=== PATIENT | female | born 1980 | race Caucasian/White ===

== ENCOUNTER → 2018-07-05 | Outpatient (CLI) | payer SELFPAY ==
[2018-07-06 08:43] LABS: ASO Titer 65.4 IU/mL (0.0-200.0)
== END | disposition home or self-care (01) ==
PROVIDERS: Referring Provider Otolaryngology Otolaryngology/Facial Plastic Surgery; Visit Provider Otolaryngology Otolaryngology/Facial Plastic Surgery
DX: J03.90 Acute tonsillitis, unspecified (principal); Z86.19 Personal history of other infectious and parasitic diseases
CPT/HCPCS: 36415; 86060

== ENCOUNTER → 2018-07-05 | Outpatient (CLI) | payer SELFPAY | END | disposition home or self-care (01) | LOC: LABSPEC 16:10 | PROVIDERS: Referring Provider Otolaryngology Otolaryngology/Facial Plastic Surgery; Visit Provider Otolaryngology Otolaryngology/Facial Plastic Surgery | DX: J02.9 Acute pharyngitis, unspecified (principal) | CPT/HCPCS: 87070 ==

== ENCOUNTER → 2023-05-11 | Outpatient (CLI) | payer MEDICAID, SELFPAY ==
[2023-05-11 09:35] LABS: Absolute Lymphocyte Count 2.55 X10^3/uL (0.83-4.51); Absolute Neutrophil Count 4.9 X10^3/uL (2.0-7.7); Basophil# 0.06 X10^3/uL; Basophil% 0.7 % (0-1); Eosinophil# 0.09 X10^3/uL; Eosinophils% 1.1 % (0-5); Hematocrit 44.1 % (37-47); Hemoglobin 14.8 g/dL (12.0-15.0); Lymphocyte # 2.55 X10^3/ul (0.83-4.51); Lymphocyte % 31.5 % (19-41); Mean Corp Hgb Conc 33.6 g/dL (32-36); Mean Corpuscular Hgb 29.7 pg (27.0-32.0); Mean Corpuscular Volume 88.4 fL (81-99); Mean Platelet Vol. 9.6 fl (6.2-12.0); Monocyte# 0.43 X10^3/uL; Monocyte% 5.3 % (0-10); NRBC Flagged by Analyzer 0 % (0-5); Neutrophil # 4.93 X10^3/uL (2.7-7.7); Platelet Count 224 K/mm3 (150-450); RBC Distribution Width CV 11.9 % (11.6-14.6); RBC Distribution Width SD 38.4 fl (35.1-43.9); Red Blood Count 4.99 M/mm3 (4.2-5.4); White Blood Count 8.1 K/mm3 (4.4-11.0)
[2023-05-11 10:05] LABS: ALB/GLOB Ratio 1.1 RATIO (0.9-2.4); AST(SGOT) 20 U/L (15-37); Alanine Aminotransfer ALT/SGPT 49 U/L (13-56); Albumin, Serum 3.7 g/dL (3.2-5.0); Alkaline Phosphatase 52 U/L (45-117); Anion Gap 5 (5-15); BUN 12 mg/dL (7-18); BUN/Creat Ratio 22.2 RATIO (10-20); Calcium,Total 8.8 mg/dL (8.5-10.1); Chloride 110 mmol/L (98-107); Creatinine, Serum 0.54 mg/dL (0.55-1.02); EST Glomerular Filtration Rate 132 mL/min (>60); Est Glom Filt Rate - Afr Amer 160 mL/min (>60); Globulin 3.3 g/dL (2.2-4.2); Glucose 84 mg/dL (74-106); Magnesium 2.1 mg/dL (1.6-2.6); Potassium 3.7 mmol/L (3.5-5.1); Prolactin 13.2 ng/mL; Sodium Level 143 mmol/L (136-145); Thyroid Stim Hormone (TSH) 0.62 uIU/mL (0.358-3.74)
[2023-05-11 10:17] LABS: Hemoglobin A1c 4.9 % (3.8-5.6)
[2023-05-11 10:38] LABS: HIV - WCH Non-Reactive (Nonreactive); Hepatitis B Surface Antibody Reactive; Hepatitis B Surface Antigen Non-Reactive (Nonreactive); Hepatitis C Antibody Non-Reactive (Nonreactive); Syphilis Antibodies Non-reactive
== END | disposition home or self-care (01) ==
LOC: LAB 09:12
PROVIDERS: Referring Provider Nurse Practitioner Family; Visit Provider Nurse Practitioner Family
DX: Z11.3 Encounter for screening for infections with a predominantly sexual mode of transmission (principal); G43.909 Migraine, unspecified, not intractable, without status migrainosus; R10.9 Unspecified abdominal pain; N94.6 Dysmenorrhea, unspecified
CPT/HCPCS: 36415; 80053; 83036; 83735; 84146; 84443; 85025; 86703; 86706; 86780; 86803; 87340

== ENCOUNTER → 2023-05-18 | Outpatient (CLI) | payer MEDICAID, SELFPAY ==
--- NOTE | 2023-05-18 14:02 | US_ITS ---
STUDY: RENAL ULTRASOUND - COMPLETE REASON FOR EXAM: Female, 42 years old. UNSPECIFIED ABDOMINAL PAIN TECHNIQUE: Ultrasound evaluation of the kidneys was performed with real-time and static fernández-scale imaging. COMPARISON: None. FINDINGS: RIGHT KIDNEY: Normal location of the right kidney, which is normal in size. The right kidney measures 13.2 x 5.5 x 4 cm. There is a normal cortex of the right kidney. The renal cortex measures 1.1 cm. There is no right renal mass or cyst. There are no right renal calculi. There is no right hydronephrosis. DISTAL RIGHT URETER: There is non-visualization of the distal right ureter. There is no demonstrated right ureterovesical junction calculus. There is a visualized right ureteral jet. LEFT KIDNEY: Normal location of the left kidney, which is normal in size. The left kidney measures 13.1 x 5.6 x 5.6 cm. There is a normal cortex of the left kidney. The renal cortex measures 1.3 cm. There is a small complex cyst with calcified wall measuring 1.5 x 1.6 x 1.5 cm There are no left renal calculi. There is no left hydronephrosis. DISTAL LEFT URETER: There is non-visualization of the distal left ureter. There is no demonstrated left ureterovesical junction calculus. There is a visualized left ureteral jet. BLADDER: The distended urinary bladder has a volume of 845.16 ml. The empty urinary bladder has a volume of 36.18 ml. There is a normal wall thickness of the distended urinary bladder. There is no demonstrated mass within the urinary bladder. There are no demonstrated bladder calculi. US/Kidney and Bladder IMPRESSION: Small complex cyst with apparent calcified wall left kidney measuring approximately 1.5 x 1.[address] would be helpful for further dilation indicated. No evidence for renal obstruction Electronically Signed: Chon Raymond MD at 23:02 EDT ,
--- OUTSIDE RECORDS SUMMARY | 2023-05-18 18:50 | XMS RPT_ITS | CCD ---
Author Name Unknown Address [address] [place] [address] Organization [facility] Care Team Providers Care Hoist Cylinder Loader Name Role Phone None, No PCP Unavailable Unavailable Unavailable Unavailable Chidi Spears Referring Unavailabl e Chidi Spears Attending Unavailabl e Chidi Spears Attending Unavailabl e Unavailable Unavailable No, Physician Primary Care Provider Unavailabl e NO, PHYSICIAN Primary Care Unavailable FINA SCHWARTZ Attending Unavailable NO, PHYSICIAN Primary Care Unavailable KAMILA FERNANDEZ Attending Unavail able Allergies Allergy Classification Reported Allergen(s) Allergy Type Date of Onset Reaction(s) Facility (7 sources) Penicillins; Translations: [Penicillins] Allergy to drug (finding) 1 [facility] (6 sources) Sulfonamides (Antibiotic); Translations: [Sulfa Drugs] Allergy to drug (finding) [facility] Work Phone: (4 sources) Penicillins Propensity to adverse reactions to drug 1 [facility] (5 sources) Sulfonamides (Antibiotic); Translations: [SULFA (SULFONAMIDE ANTIBIOTICS)] Propensity to adverse reactions to drug 1 [facility] Medications Current Medications Medication Drug Class(es) Dates Sig (Normalized) Sig (Original) azithromycin 250 mg oral tablet (4 sources) Macrolide Antimicrobial Start: 01-07-2023 azithromycin (Zithromax Z-Kade) 250 MG tablet Indications: Right otitis media, unspecified otitis media type Take 2 tablets on day one and 1 tablet on days 2 through 5. . 6 tablet 0 01/07/2023 Active Completed/Discontinued Medications Medication Drug Class(es) Dates Sig (Normalized) Sig (Original) ascorbic acid 500 mg chewable tablet (6 sources) Vitamin C Vitamin C Oral T ablet Chewable Quantity: 0 Refills: 0 Ordered: 26-Oct-2020 DO Active Womens Multivitamin Plus TABS (6 sources) Womens Multivita min Plus TABS Quantity: 0 Refills: 0 Ordered: 26-Oct-2020 DO Active Problems Active Problems Problem Classification Problem Date Documented Da te Episodic/Chronic Immunizations and screening for infectious disease (1 source) Suspected disease caused by 2019-nCoV; Translations: [Suspected COVID-19 virus infection] 04-08-2023 Episodic Nonmalignant breast conditions (6 sources) Discharge from the breast; Translations: [Other signs and symptoms in breast] Episodic Other ear and sense organ disorders (3 sources) Acute otitis externa of right ear; Translations: [Unspecified acute noninfective otitis externa, right ear] 01-07-2023 Episodic Other ear and sense organ disorders (3 sources) Impacted cerumen in right ear; Translations: [Impacted cerumen, right ear] 01-07-2023 Episodic Other nervous system disorders (2 sources) Loss of sense of smell; Translations: [Anosmia] Onset: 04-08-2023 04-08-2023 Episodic Other nervous system disorders (1 source) Loss of taste; Translations: [Parageusia] 04-08-2023 Episodic Other nervous system disorders (1 source) Anosmia; Translations: [Anosmia] Onset: 04-08-2023 Episodic Other nervous system disorders (2 sources) Parageusia; Translations: [Parageusia] Onset: 04-08-2023 Episodic Other screening for suspected conditions (not mental disorders or infectious disease) (8 sources) Abnormal findings on diagnostic imaging of breast; Translations: [Other (abnormal) findings on radiological examination of breast] Onset: 11-04-2021 Episodic Residual codes; unclassified (6 sources) Infertile; Translations: [Infertility] Episodic Unclassified (1 source) Contact with and (suspected) exposure to covid-19; Translations: [Contact with and (suspected) exposure to covid-19] Onset: 04-08-2023 Past or Other Problems Problem Classification Problem Date Documented Da te Episodic/Chronic Other ear and sense organ disorders (2 sources) Unspecified acute noninfective otitis externa, right ear; Translations: [Unspecified acute noninfective otitis externa, right ear] Onset: 01-07-2023 Episodic Other ear and sense organ disorders (2 sources) Impacted cerumen, right ear; Translations: [Impacted cerumen, right ear] Onset: 01-07-2023 Episodic Otitis media and related conditions (5 sources) Otitis media of right ear; Translations: [Otitis media, unspecified, right ear] Onset: 01-07-2023 01-07-2023 Episodic Unclassified (6 sources) Finding of menstrual bleeding; Translations: [Menstruation] Results Test Name Value Interpretation Reference Range Facil ity Vital Signs Date Time Vital Sign Value Performing Clinician Facility 04-08-2023 09:21-0500 Body height 172.7 cm Fina Schwartz DO Work Phone: [facility] 04-08-2023 09:21-0500 Body mass index (BMI) [Ratio] 25.85 kg/m2 Fina Schwartz DO Work Phone: [facility] 04-08-2023 09:21-0500 Body temperature 98.2 [degF] Fina Schwartz DO Work Phone: [facility] 04-08-2023 09:21-0500 Body weight 77.11 kg Fina Schwartz DO Work Phone: [facility] 04-08-2023 09:21-0500 Diastolic blood pressure 85 mm[Hg] Fina Schwartz DO Work Phone: [facility] 04-08-2023 09:21-0500 Heart rate 63 /min Fina Schwartz DO Work Phone: [facility] 04-08-2023 09:21-0500 Respiratory rate 16 /min Fina Schwartz DO Work Phone: [facility] 04-08-2023 09:21-0500 SaO2% (BldA) [Mass fraction] 95 % Fina Schwartz DO Work Phone: [facility] 04-08-2023 09:21-0500 Systolic blood pressure 122 mm[Hg] Fina Schwartz DO Work Phone: [facility] 01-07-2023 09:22-0500 Body height 172.7 cm Kamila Fernandez CNP Work Phone: [facility] 01-07-2023 09:22-0500 Body mass index (BMI) [Ratio] 25.09 kg/m2 Kamila Fernandez CNP Work Phone: [facility] 01-07-2023 09:22-0500 Body temperature 98.2 [degF] Kamila Fernandez CORE DROPPER Work Phone: [facility] 01-07-2023 09:22-0500 Body weight 74.84 kg Kamila Fernandez CNP Work Phone: [facility] 01-07-2023 09:22-0500 Diastolic blood pressure 85 mm[Hg] Kamila Fernandez CNP Work Phone: [facility] 01-07-2023 09:22-0500 Heart rate 72 /min Kamila Fernandez CORE DROPPER Work Phone: [facility] 01-07-2023 09:22-0500 Respiratory rate 16 /min Kamila Fernandez CNP Work Phone: [facility] 01-07-2023 09:22-0500 SaO2% (BldA) [Mass fraction] 97 % Kamila Fernandez CNP Work Phone: [facility] 01-07-2023 09:22-0500 Systolic blood pressure 117 mm[Hg] Kamila Fernandez CNP Work Phone: [facility] 11-04-2021 08:53-0400 Body height 172.72 cm No PCP None [facility] [address] Work Phone: 11-04-2021 08:53-0400 Body mass index (BMI) [Ratio] 24.74 kg/m2 No PCP None [facility] [address] Work Phone: 11-04-2021 08:53-0400 Body surface area Derived from formula 1.87 m2 No PCP None [facility] [address] Work Phone: 11-04-2021 08:53-0400 Body weight 73.8 kg No PCP None [facility] [address] Work Phone: 11-04-2021 08:53-0400 Diastolic blood pressure 60 mm[Hg] No PCP [facility] [address] Work Phone: 11-04-2021 08:53-0400 Systolic blood pressure 108 mm[Hg] No PCP None [facility] [address] Work Phone: 10-26-2020 09:25-0400 Body height 172.72 cm No PCP None [facility] Work Phone: 10-26-2020 09:25-0400 Body mass index (BMI) [Ratio] 27.76 kg/m2 No PCP None [facility] Work Phone: 10-26-2020 09:25-0400 Body surface area Derived from formula 1.97 m2 No PCP None [facility] Work Phone: 10-26-2020 09:25-0400 Body temperature 98.7 [degF] No PCP None [facility] Work Phone: 10-26-2020 09:25-0400 Body weight 82.8 kg No PCP None [facility] Work Phone: 10-26-2020 09:25-0400 Diastolic blood pressure 66 mm[Hg] No PCP None [facility] Work Phone: 10-26-2020 09:25-0400 Systolic blood pressure 108 mm[Hg] No PCP None [facility] Work Phone: Encounters Encounter Date Encounter Type Care Provider Facility Start: 04-08-2023 End: 04-08-[address] [facility] Start: 04-08-2023 End: 04-08-2023 Office outpatient visit 15 minutes Fina Schwartz DO Work Phone: [facility] [place] Procedures Date Procedure Procedure Detail Performing Clinician Start: 04-08-2023 Sars-cov-2 detection by dna/rna Fina Schwartz DO Work Phone: Start: 01-07-2023 EAR WAX REMOVAL Hernán Fernandez CORE DROPPER Work Phone: Appendectomy No PCP None Colposcopy No PCP None Plan of Treatment Date Care Activity Detail Author Start: 05-31-2025 Tetanus vaccination Tetanus: Every 1 0yrs [facility] Start: 09-02-2023 Influenza vaccination Sequential Inf luenza Vaccine (#1) [facility] Immunizations Immunization Date Immunization Notes Care Provider Fa cility 12-07-2017 Influenza, injectabl e, Madin Luciana Canine Kidney, preservative free, quadrivalent Kamila Rebecca CORE DROPPER Work Phone: [facility] 06-01-2015 tetanus toxoid, redu chaya diphtheria toxoid, and acellular pertussis vaccine, adsorbed Kamila Rebecca CORE DROPPER Work Phone: [facility] Payers Date Payer Category Payer Unknown 2022 Unknown [id number] 1980 Unknown [id number] 1980 Unknown [id number] [id number] 1980 Unknown [id number] [id number]. [id number] 1980 Unknown [id number] [id number]. [id number] Unknown [id number] Social History Date Type Detail Facility Start: 01-07-2023 End: 04-08-2023 Non-smoker Non-smoker [facility] Work Phone: Start: 01-07-2023 Tobacco smoking status NHIS Never smoked tobacco [facility] Start: 01-07-2023 Tobacco use and exposure Smokeless tobacco non-user [facility] Start: 01-07-2023 End: 04-08-2023 Alcohol intake Current drinker of alcohol (finding) [facility] Start: 01-07-2023 Alcohol Comment rarely [facility] Start: 1980 Sex Assigned At Not on file [facility] Start: 01-07-2023 End: 04-08-2023 Gender identity Not on file [facility] NEGATED: Highlighted rowStart: NINF History of tobacco use Passive smoker [facility] Clinical Notes 12-07-2013 to 04-08-2023 Patient InstructionsAttachmentsFina Schwartz DO - 04/08/2023 9:29 AM ESTAddendum Note - Kamila Fernandez, CORE DROPPER - 01/07/2023 10:01 AM ESTPatient InstructionsAttachments Note Date & Type Note Facility 04-08-2023 Instructions Fina Schwartz DO - 04/08/2023 9:59 AM EST As we discussed in detail, your presentation is strongly suspicious for COVID-19 infection and you may have had a false negative test. No test in medical care is perfect. I recommend isolation for the next 2 days followed by returning to work with a mask which is your usual practice. The following attachments cannot be sent through Care Everywhere.Coronavirus Disease (COVID-19): General Info (Norwegian)documented in this encounter [facility] 04-08-2023 History of Presen t illness Narrative PATIENT NAME: Brandee Caceres [facility]: [address] [facility] [id number] DATE OF VISIT: 04/08/2023 DATE OF : 1980 SS: [id number] PROVIDER: Fina Schwartz DO SUBJECTIVE 42 y.o. female to the clinic for complaint of Chief Complaint Patient presents with Covid-19 Screening C/O nausea x . Headache, body aches, nausea, loss of taste and smell and SOB x Sunday HPI: Symptoms of nausea, headache and myalgias started 3 days ago. Symptoms of loss of taste and smell, minor cough, nasal congestion, rhinorrhea and mild dyspnea started 2 days ago. Concern for COVID. ROS: Constitutional: Denies measured fever or febrile symptoms (shivering, chills, sweats). Head/Ear/Nose/Throat: Denies ear pain or sore throat. Respiratory: See HPI above. Cardiovascular: Denies chest pain. Gastrointestinal: Denies diarrhea, abdominal pain, nausea, vomiting. Musculoskeletal: Admits to intermittent generalized myalgia. Skin: Denies rash Neurological: Admits to headache not of sudden onset or high severity. Social History Socioeconomic History Marital status: Tobacco Use Smoking status: Never Passive exposure: Never Smokeless tobacco: Never Vaping Use Vaping Use: Never used Substance and Sexual Activity Alcohol use: Yes Comment: rarely Drug use: Never History reviewed. No pertinent past medical history. History reviewed. No pertinent family history. Current Outpatient Medications on File Prior to Visit Medication Sig Dispense Refill multivitamin (THERAGRAN) per tablet Take 1 (one) tablet by mouth daily . omega-3 fatty acids/fish oil (fish oil-omega-3 fatty acids) 300-1,000 mg capsule Take 2 (two) capsules by mouth daily . azithromycin (Zithromax Z-Kade) 250 MG tablet Take 2 tablets on day one and 1 tablet on days 2 through 5. . (Patient not taking: Reported on 04/08/2023 .) 6 tablet 0 No current facility-administered medications on file prior to visit. Allergies Allergen Reactions Penicillins Rash Sulfa (Sulfonamide Antibiotics) Rash EXAM: BP 122/85 (BP Location: Right arm, Patient Position: Sitting, BP Cuff Size: Adult) Pulse 63 Temp 98.2 F (36.8 C) Resp 16 Ht 5' 8 Wt 77.1 kg (170 lb) LMP 04/02/2023 (Exact Date) SpO2 95% BMI 25.85 kg/m Constitutional: Vital signs reviewed. Well-appearing. No distress. Psychiatric: Mental status is appropriate. Normal affect. Skin: Warm and dry. No rash noted. Eyes: Conjunctiva clear. No photophobia. HENT: No hoarseness, drooling, trismus or stridor. No tonsil enlargement or exudate. No abscess. Tympanic membranes are normal. Sniffles and postnasal drainage noted. Thorax/ Respiratory: Respiratory effort non-labored. Speaks in full sentences without dyspnea. Lungs are clear to auscultation. Cardiovascular: Good peripheral circulation. H RRR with no murmurs or ectopy. Musculoskeletal: No gross abnormalities. Neck has normal ROM without hesitation or pain response. Neurologic: Alert and appropriately conversant. No ataxia. No dysarthria. No gross facial motor asymmetry. PROCEDURE Procedures RESULTS Recent Results (from the past 168 hour(s)) COVID-19, Molecular Collection Time: 04/08/23 9:35 AM Specimen: Nasopharyngeal; Swab Result Value Ref Range SARS-CoV-2 Not Detected Not Detected Diagnosis: The primary encounter diagnosis was Suspected COVID-19 virus infection. Diagnoses of Anosmia and Ageusia were also pertinent to this visit. Plan: 1. Suspected COVID-19 virus infection COVID-19, Molecular 2. Anosmia 3. Ageusia No follow-ups on file. ADDITIONAL CLINICAL COMMENTS / MEDICAL DECISION MAKING / PLAN: Test for COVID-19 was negative. Discussed probability of false negative test. Discussed that it is true that nasal congestion can sometimes diminish acuity of taste and smell. However, she is very emphatic of the complete sudden shot off of taste and smell that is beyond congestion and is very similar to her previous bout of COVID. I advised her to remain in isolation for 2 more days followed by return to work while wearing a mask. 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 Prior to finding the negative test result in the clinic today, we discussed possibility of optional Paxlovid. She had declined the offer. ORDERS PLACED THIS VISIT Orders Placed This Encounter Procedures COVID-19, Molecular MEDICATION LIST AT END OF VISIT Current Outpatient Medications Medication Sig Dispense Refill multivitamin (THERAGRAN) per tablet Take 1 (one) tablet by mouth daily . omega-3 fatty acids/fish oil (fish oil-omega-3 fatty acids) 300-1,000 mg capsule Take 2 (two) capsules by mouth daily . azithromycin (Zithromax Z-Kade) 250 MG tablet Take 2 tablets on day one and 1 tablet on days 2 through 5. . (Patient not taking: Reported on 04/08/2023 .) 6 tablet 0 No current facility-administered medications for this visit. Fina Schwartz DO documented in this encounter [facility] 01-07-2023 Note Right ear irrigation completed as ordered. Large amount of cerumen removed. Canal and TM red in color. P Conn CORE DROPPER returned to room for re-evaluation. Tolerated procedure well. [facility] 01-07-2023 Note Right ear irrigation completed as ordered. Large amount of cerumen removed. Canal and TM red in color. Carlito Fernandez CNP returned to room for re-evaluation. Tolerated procedure well. [facility] 01-07-2023 Note Addended by: Carlito FERNANDEZ on: 01/07/2023 10:01 AM Modules accepted: Level of Service [facility] 01-07-2023 Note Addended by: Carlito FERNANDEZ on: 01/07/2023 10:01 AM Modules accepted: Level of Service [facility] 01-07-2023 Note Addended by: Carlito FERNANDEZ on: 01/07/2023 10:01 AM Modules accepted: Level of Service [facility] 01-07-2023 Miscellaneous Notes Addended by: KAMILA FERNANDEZ on: 01/07/2023 10:01 AM Modules accepted: Level of Service documented in this encounter [facility] 01-07-2023 Instructions Kamila Fernandez CNP - 01/07/2023 10:00 AM EST Thank you for choosing [facility] for your healthcare needs today. Take the oral antibiotic as prescribed. Use the drops for a few days to prevent full blown canal infection (otitis externa). Follow up persistent/worsening of symptoms as needed. The following attachments cannot be sent through Care Everywhere.Otitis Externa (Norwegian)Otitis Media (Norwegian)documented in this encounter [facility] 01-07-2023 History of Presen t illness Narrative Images from the original note were not included. Patient Name: [facility] Location: Brandee Caceres [address] [place] [id number] Date Of : Date Of Visit: 1980 01/07/2023 MRN# Provider: [id number] Kamila Fernandez CNP Chief Complaint Patient presents with Otalgia Right ear pain after working in ear with camera to see ear wax. Canal red, cerumen seen, TM partially visible. Assessment & Plan 1. Acute otitis externa of right ear, unspecified type vrysltnb-qvxjzcxyl-eskecegzwfsh ne (CORTISPORIN) otic solution 2. Right otitis media, unspecified otitis media type azithromycin (Zithromax Z-Kade) 250 MG tablet 3. Impacted cerumen of right ear Ear wax removal No follow-ups on file. Medical Decision Making Client is pleasant, non-toxic in NAD with pain of the right ear after attempting ear lavage. No URI symptoms. Requesting ear lavage. Pain mild and intermittent. Reports pain with swallowing on occasion. No report of URI symptoms. Reviewed allergies. Non-smoker. See H&P Ear lavage right ear canal Client with OM right/Canal Irritation Right Zithromax/Cortisporin Otic No work note. Declines Flu Vac. Additional Clinical Comments See AVS Subjective 42 y.o. female presents with Otalgia (Right ear pain after working in ear with camera to see ear wax. Canal red, cerumen seen, TM partially visible.) Otalgia right ear after attempting to remove cerumen. Requests ear lavage to remove cerumen in the right ear. Otalgia There is pain in the right ear. This is a new problem. The current episode started in the past 7 days. Episode frequency: intermittent and with swallowing at times. The problem has been waxing and waning. The pain is mild. Pertinent negatives include no coughing, ear discharge, hearing loss, rhinorrhea or sore throat. Review Of Systems Review of Systems Constitutional: Negative for fever. HENT: Positive for ear pain. Negative for congestion, ear discharge, hearing loss, rhinorrhea and sore throat. Respiratory: Negative for cough. Medical History History reviewed. No pertinent past medical history. Past Surgical History: Procedure Laterality Date APPENDECTOMY right shoudler surgery There is no problem list on file for this patient. Social History Social History Tobacco Use Smoking status: Never Passive exposure: Never Smokeless tobacco: Never Vaping Use Vaping Use: Never used Substance Use Topics Alcohol use: Yes Comment: rarely Drug use: Never Family History No family history on file. Objective Physical Exam BP 117/85 (BP Location: Right arm, Patient Position: Sitting, BP Cuff Size: Adult) Pulse 72 Temp 98.2 F (36.8 C) (Oral) Resp 16 Ht 5' 8 Wt 74.8 kg (165 lb) LMP 12/12/2022 (Exact Date) Comment: LMP start date / kse SpO2 97% BMI 25.09 kg/m Vision/Hearing Exam:No results found. Physical Exam Vitals and nursing note reviewed. Constitutional: General: She is not in acute distress. Appearance: Normal appearance. She is not ill-appearing, toxic-appearing or diaphoretic. HENT: Head: Normocephalic and atraumatic. Right Ear: There is impacted cerumen. Left Ear: Tympanic membrane normal. Cardiovascular: Rate and Rhythm: Normal rate. Pulmonary: Effort: Pulmonary effort is normal. No respiratory distress. Skin: General: Skin is warm and dry. Neurological: Mental Status: She is alert. Psychiatric: Mood and Affect: Mood normal. Behavior: Behavior normal. Procedure Notes Procedures Results No results found for this or any previous visit (from the past 168 hour(s)). No orders to display Orders Placed This Visit Orders Placed This Encounter Procedures Ear wax removal Medication List At End Of Visit Current Outpatient Medications Medication Sig Dispense Refill multivitamin (THERAGRAN) per tablet Take 1 (one) tablet by mouth daily . omega-3 fatty acids/fish oil (fish oil-omega-3 fatty acids) 300-1,000 mg capsule Take 2 (two) capsules by mouth daily . azithromycin (Zithromax Z-Kade) 250 MG tablet Take 2 tablets on day one and 1 tablet on days 2 through 5. . 6 tablet 0 yvfuridp-bzbrthazj-pyrltfezzdaj ne (CORTISPORIN) otic solution Administer 4 (four) drops to the right ear 3 (three) times a day for 10 days . 10 mL 0 No current facility-administered medications for this visit. Patient Instructions Thank you for choosing [facility] for your healthcare needs today. Take the oral antibiotic as prescribed. Use the drops for a few days to prevent full blown canal infection (otitis externa). Follow up persistent/worsening of symptoms as needed. documented in this encounter [facility] 11-04-2021 Note 60 Date of Procedure: 11/04/2021 Pathologist: [facility], Cytology Date Reported: 11/14/2021 Date Received: 11/04/2021 Submitting Physician: CHIDI SPEARS MD FINAL CYTOLOGICAL INTERPRETATION A. THINPREP PAP CERVICAL: Specimen adequacy: SATISFACTORY FOR EVALUATION. Quality Indicator: Endocervical/transformation zone component is present. General Categorization: NEGATIVE FOR INTRAEPITHELIAL LESION OR MALIGNANCY. HIGH RISK HPV TEST RESULT: NEGATIVE Reference Range: Negative Slide(s) initially screened by a Auto Body Mechanic at [facility], [address] [place] [id number] Testing for high-risk (HR) type of human papilloma virus (HPV) is performed by the Vanda david HPV Test. The david HPV Test is a qualitative polymerase chain reaction that amplifies DNA of HPV16, HPV18 and 12 other high-risk HPV types (31, 33, 35, 39, 45, 51, 52, 56, 58, 59, 66, and 68) associated with cervical cancer and its precursor lesions. A positive result indicates the presence of HPV DNA due to one or more of the 14 genotypes: 16, 18, 31, 33, 35, 39, 45, 51, 52, 56, 58, 59, 66, and 68. Negative results indicate HPV DNA concentrations are undetectable or below the pre-set threshold for detection. False negative results may be associated with unoptimized sampling. A negative HR HPV result does not exclude the possibility of future cytologic HSIL or underlying CIN2-3 or cancer. This test is approved for cervical specimens by the US Food and Drug Administration. Results of this test should be interpreted in conjunction with the patient?s Pap test results. Please refer to ASCCP current guidelines for the use of HPV DNA testing, result interpretation, and patient management. The performance of this test was verified by the Molecular Diagnostic Laboratory at [facility] [place]. The lab is certified under the Clinical Laboratory Amendments of 1988 (CLIA 88) as qualified to perform high complexity clinical laboratory testing. This specimen has been analyzed by the [employer] Imaging System ([employer] an automated imaging and review system, which assists the laboratory in evaluating cells on ThinPrep Pap tests. Following automated imaging, selected holman from every slide were reviewed by a manufacturers agent and/or pathologist. Electronically Signed Out By [facility], Cytology//KMW By the signature on this report, the individual or group listed as making the Final Interpretation/Diagnosis certifies that they have reviewed this case. Diagnostic interpretation performed at [facility] [address] [place] [address] Educational Note: Cervical cytology is a screening procedure primarily for squamous cancers and precursors and has associated false-negative and false-positive results as evidenced by published data. Your patient?s test should be interpreted in this context, together with patient?s history and clinical findings. Regular sampling and follow-up of unexplained clinical signs and symptoms are recommended to minimize false negative results. Clinical History Date of Last Menstrual Period: 10/26/21 Other Clinical Conditions: COTEST HPV except for ASC-H, HSIL, Carcinoma - Exclude HPV Genotype testing Annual Clinical Diagnosis History: Encounter for routine gynecological examination - (Z01.419); Screening for cervical cancer - (Z12.4) Source of Specimen A: THINPREP PAP CERVICAL [facility] [place] Department of Pathology [id number] [place] [address] [facility] Suspected COVID-19 virus infection- Primary Anosmia Disturbances of sensation of smell and taste [place] Disturbances of sensation of smell and taste [facility]* BRANDEE CACERES is a 40 year female who presents today at the request of Chidi Spears MD with bilateral nipple discharge. * She denies any additional breast masses, skin thickening, erythema, nipple retraction or nipple discharge. * Prior breast history includes: * - breast biopsy: * - breast surgery: * - breast cancer: * Last mammogram: * Menarche: * AFLB: * Menopause: * HRT: * Family history: JAMES-[place] Work Phone: Chief Complaint New patient here for second opinion regarding endometriosis or PCOS. Patient states she has trying to conceive for 18 years and has had lower pelvic pain the entire time. LMP: 10/09/20.New patient here for second opinion regarding endometriosis or PCOS. Patient states she has trying to conceive for 18 years and has had lower pelvic pain the entire time. LMP: 10/09/20.bilateral nipple dischargeleft nipple discharge* Patient is here for yearly exam. Patient does not do self breast exams regularly. LMP 10/26/21 * PT STATES THAT SHE HAS BEEN GETTING A LOT OF HEADACHES RECENTLY. PT THINKS THIS IS DUE TO HER PILLOW AT NIGHT. Family History No Family History Records FoundUnknown Family Member Name Dates Details No pertinent family history: Mother(V49.89, Z78.9) Status:Active Family history of myocardial infarction: Father(V17.3, Z82.49) Status:Active Irregular heartbeat: Sister Status:Active Family history of thyroid di sease: Sister(V18.19, Z83.49) Status:Active Family history of malignant neoplasm of thyroid: Sister(V16.8, Z80.8) Status:Active Family history of hypertensi on: Father, Sister(V17.49, Z82.49) Status:Active Unknown Family Member Name Dates Details Family history of hypertensi on: Father, Sister(V17.49, Z82.49) Status:Active Family history of malignant neoplasm of thyroid: Sister(V16.8, Z80.8) Status:Active Family history of thyroid di sease: Sister(V18.19, Z83.49) Status:Active Irregular heartbeat: Sister Status:Active Family history of myocardial infarction: Father(V17.3, Z82.49) Status:Active No pertinent family history: Mother(V49.89, Z78.9) Status:Active Unknown Family Member Name Dates Details Family history of hypertensi on: Father, Sister(V17.49, Z82.49) Status:Active Family history of malignant neoplasm of thyroid: Sister(V16.8, Z80.8) Status:Active Family history of thyroid di sease: Sister(V18.19, Z83.49) Status:Active Irregular heartbeat: Sister Status:Active Family history of myocardial infarction: Father(V17.3, Z82.49) Status:Active No pertinent family history: Mother(V49.89, Z78.9) Status:Active Unknown Family Member Name Dates Details Family history of hypertensi on: Father, Sister(V17.49, Z82.49) Status:Active Family history of malignant neoplasm of thyroid: Sister(V16.8, Z80.8) Status:Active Family history of thyroid di sease: Sister(V18.19, Z83.49) Status:Active Irregular heartbeat: Sister Status:Active Family history of myocardial infarction: Father(V17.3, Z82.49) Status:Active No pertinent family history: Mother(V49.89, Z78.9) Status:Active Unknown Family Member Name Dates Details Family history of hypertensi on: Father, Sister(V17.49, Z82.49) Status:Active Family history of malignant neoplasm of thyroid: Sister(V16.8, Z80.8) Status:Active Family history of thyroid di sease: Sister(V18.19, Z83.49) Status:Active Irregular heartbeat: Sister Status:Active Family history of myocardial infarction: Father(V17.3, Z82.49) Status:Active No pertinent family history: Mother(V49.89, Z78.9) Status:Active Unknown Family Member Name Dates Details Family history of hypertensi on: Father, Sister(V17.49, Z82.49) Status:Active Family history of malignant neoplasm of thyroid: Sister(V16.8, Z80.8) Status:Active Family history of thyroid di sease: Sister(V18.19, Z83.49) Status:Active Irregular heartbeat: Sister Status:Active Family history of myocardial infarction: Father(V17.3, Z82.49) Status:Active No pertinent family history: Mother(V49.89, Z78.9) Status:Active Summary Purpose Advance Directives No Advanced Directives Records FoundNo Advanced Directives Records FoundNo Advanced Directives Records FoundNo Advanced Directives Records FoundNo Advanced Directives Records Found Additional Source Comments INFORMATION SOURCE (unrecogn ized section and content) DATE CREATED AUTHOR AUTHOR'S ORGANIZ ATION 04/07/2021 [facility] [place] DATE CREATED AUTHOR AUTHOR'S ORGANIZ ATION 11/04/2021 [facility] DATE CREATED AUTHOR AUTHOR'S ORGANIZ ATION 11/14/2021 [facility] DATE CREATED AUTHOR AUTHOR'S ORGANIZ ATION 04/08/2023 [facility] Reason for Visit (unrecogniz ed section and content) Reason Comments Covid-19 Screening C/O nausea x Thursda y. Headache, body aches, nausea, loss of taste and smell and SOB x Sunday Care Teams (unrecognized sec tion and content) [employer]yl[employer] Relationship Specialty Start Date End Date No, Physician [facility] PCP - General 01/07/23 FOR RECORDS PERTAINING TO PATIENTS WHO ARE OR HAVE BEEN ENROLLED IN A CHEMICAL DEPENDENCY/SUBSTANCEABUSE PROGRAM, SOME INFORMATION MAY BE OMITTED. This clinical summary was aggregated from multiple sources. Caution should be exercised in using it in the provision of clinical care. This summary normalizes information from multiple sources, and as a consequence, information in this document may materially change the coding, format and clinical context of patient data. In addition, data may be omitted in some cases. CLINICAL DECISIONS SHOULD BE BASED ON THE PRIMARY CLINICAL RECORDS. [facility] [employer] provides no warranty or guarantee of the accuracy or completeness of information in this document.
== END | disposition home or self-care (01) ==
LOC: US 14:01
PROVIDERS: Referring Provider Nurse Practitioner Family; Visit Provider Nurse Practitioner Family
DX: R10.9 Unspecified abdominal pain (principal)
CPT/HCPCS: 76770

== ENCOUNTER 2023-05-26 11:21 | Emergency (ER) | payer MEDICAID, SELFPAY ==
[2023-05-26 11:21] VITALS: BP 140/84; PULSE 81; RESP 16; O2SAT 98
[2023-05-26 11:22] VITALS: BP 140/84; PULSE 87; RESP 14; TEMP 36.6; O2SAT 98; BMI 27.4
--- NOTE | 2023-05-26 12:11 | EX.ED.DYSGE1 ---
HPI History of Present Illness Chief Complaint: Abd Pain Narrative Narrative: 42-year-old female presenting with suprapubic pain, dysuria, back pain. She states she has had the symptoms for over a year. Patient states she has health insurance for the last year and has been seeing the urgent care. She states she has had urinalysis in the past that shows she has a UTI. She is also had some negative urinalyses. Patient states that she has not had fevers, chills. She has no nausea, vomiting. Patient states that all of her symptoms started over a year ago when she was using a sex toy and thinks she injured her urethra and noticed that she had some urinary symptoms. She is never found a source of the symptoms. She has not seen a urologist. Recently she had lab workOn the eighth which was all normal which included a CBC, CMP, A1c, hepatitis B, HIV, magnesium, prolactin, TSH. Patient states her urinalysis was negative. Patient states she has an outpatient kidney and bladder ultrasound which is negative except for renal cyst. Patient states has been some problem with follow-up to get a CT scan. Patient reports that she has some lower back pain bilaterally which is new. PFSH PFSH Allergy/AdvReac Type Severity Reaction Status Date / Time Penicillins Allergy Mild Rash Verified 05/26/23 11:24 Sulfa (Sulfonamide Allergy Mild Rash Verified 05/26/23 11:24 Antibiotics) Social History Smoking Status: Never smoker ROS ROS ED Constitutional Constitutional ED: Denies chills, fever(s) or sweats Eyes Eyes: Denies blurry vision or change in vision ENT ENT ED: Denies ear pain or sore throat Cardiovascular Cardiovascular: Denies chest pain, palpitations or racing heartbeat Respiratory/Chest Respiratory/Chest: Denies cough, dyspnea or sputum Gastrointestinal Gastrointestinal: Reports abdominal pain; Denies constipation, diarrhea, nausea or vomiting Genitourinary Genitourinary ED: Reports dysuria and urinary frequency; Denies hematuria Musculoskeletal Musculoskeletal: Reports back pain; Denies arthralgias, myalgias or neck pain Integumentary Denies abscess, Abrasions or rash Neurologic Neurologic: Denies headache(s), paresthesias or weakness Psychiatric Psychiatric: Denies anxiety, depression, suicidal ideation or suicidal thoughts Endocrine Endocrinology: Denies polydipsia or polyuria EXAM Physical Exam Const Vital Signs: 05/26/23 11:21 05/26/23 11:22 05/26/23 13:21 Temperature 97.8 F Temperature Source Temporal Pulse Rate 81 87 68 Respiratory Rate 16 14 17 Blood Pressure 140/84 H 140/84 H 138/97 H Blood Pressure Mean 102 102 110 Pulse Ox 98 98 97 Oxygen Delivery Method Room Air Room Air Room Air Positive well nourished General Appearance ED: NAD; Negative for pallor HEENT Reports moist mucous membranes and dry mucous membranes Negative for trauma Mouth ED: Yes dry mucous membranes Mouth: dry mucous membranes Eyes PERRL and EOMs intact bilaterally Neck no lymphadenopathy Chest Wall inspection of chest normal Resp normal respiratory effort and clear to auscultation bilaterally Auscultation: Negative for rales, rhonchi or wheezes Cardio regular rate and regular rhythm GI normal to inspection, nondistended, normoactive bowel sounds Back/Spine no CVA tenderness Neuro oriented x3 and CN's II-XII intact bilaterally Sensorium / Orientation: alert Motor Exam: strength 5/5 throughout Psych mental status grossly normal Skin no rashes or lesions noted General Skin Exam: Negative for jaundice or pallor MDM MDM MDM Narrative Medical decision making narrative: Patient presenting with lower back pain, dysuria. Abdominal exam is benign. Back exam is normal. No CVA tenderness. No midline spinal tenderness, deformity, step-off. No loss of bladder or bowel control. Vital signs stable she is afebrile. Heart regular rate and rhythm without murmur. Lungs clear auscultation bilaterally. Discussed getting a urinalysis and if this is negative for infection having the patient referred to urology. Urinalysis negative for infection. Discussed this at length with the patient that she should follow-up with urology. Patient amenable to this. She discharged stable condition. Impression: 1. Dysuria Lab Data Labs: Laboratory Results - last 24 hr 05/26/23 12:19 Urine Color Yellow Urine Clarity Clear Urine pH 5.0 Ur Specific [place] 1.025 Urine Protein 15 H Urine Glucose (UA) Normal Urine Ketones Negative Urine Occult Blood 25 H Urine Nitrite Negative Urine Bilirubin Negative Urine Urobilinogen Normal Ur Leukocyte Esterase 25 H Urine RBC 0 SEEN Urine WBC 0-5 SEEN Ur Squamous Epith Cells 0-5 SEEN Urine Bacteria RARE Urine Mucus 0 SEEN Discharge Plan Triage Chief Complaint: Abd Pain ED Provider: Derick Hurst Dx/Rx/DC Orders Instructions: ED Dysuria, Uncertain Cause (Adult) Primary Care Provider: [facility] Referrals: Veronika Burnett MD [Med Staff - Active Staff] - 3-5 Days [facility] [Primary Care Provider] - Disposition Disposition: Home, Self Care Discharge Date/Time: 05/26/23 13:37
[2023-05-26 12:23] LABS: Mucous, Urine 0 SEEN /hpf (<or=2+); Red Blood Cells-Urine 0 SEEN /hpf (0-5)
[2023-05-26 12:52] LABS: Color, Urine Yellow (Yellow); Glucose, Dipstick Normal (Normal); Ketone-Dipstick Negative (Negative); Leukocyte Esterase-Dipstick 25 /ul (Negative); Nitrite-Dipstick Negative (Negative); Occult Blood-Urine 25 /ul (Negative); Protein-Dipstick 15 mg/dl (Negative); Specific Gravity, Urine 1.025 (1.002-1.030); Urine Bilirubin Dipstick Negative (Negative); Urine Clarity Clear (Clear); Urine Urobilinogen Normal (Normal)
[2023-05-26 13:01] LABS: Bacteria RARE /hpf (None Seen); Squamous Epithelial Cells - UA 0-5 SEEN /hpf (5-10); White Blood Cells 0-5 SEEN /hpf (0-5)
[2023-05-26 13:21] VITALS: BP 138/97; PULSE 68; RESP 17; O2SAT 97
== END 2023-05-26 13:37 | disposition home or self-care (01) ==
PROVIDERS: Emergency Provider Student in an Organized Health Care Education/Training Program; Visit Provider Student in an Organized Health Care Education/Training Program
DX: R30.0 Dysuria (principal); M54.50 Low back pain, unspecified; R35.0 Frequency of micturition
CPT/HCPCS: 81001; 99282

== ENCOUNTER → 2023-07-13 | Outpatient (CLI) | payer MEDICAID, SELFPAY ==
--- NOTE | 2023-07-13 11:41 | US_ITS ---
STUDY: ULTRASOUND OF THE FEMALE PELVIS - COMPLETE REASON FOR EXAM: Female, 43 years old. DYSMENNORHEA LMP: 06/18/2023 TECHNIQUE: Transabdominal and Transvaginal TECHNICAL QUALITY: Adequate. COMPARISON: None. FINDINGS: The uterus is anteverted and is in a midline position. The uterus measures 8.9 x 5.7 x 4.2 cm. Normal uterine cervix. The endometrium measures 9 mm in thickness, and is hyperechoic. There is no demonstrated endometrial mass. There is a 1 cm fibroid. I.U.D. - The patient does not have an I.U.D. There is no sonographic evidence of intrauterine gestation The right ovary is visualized. The right ovary measures 4.8 x 3.1 x 2.7 cm. There is a complex 2.9 x 2.4 x 2.6 cm cyst with associated fluid. There is normal arterial and normal venous vascularity. The left ovary is visualized. The left ovary measures 4.3 x 2.4 x 3.2 cm. There is no left ovarian cyst or ovarian mass. There is no visualized left adnexal mass or complex lesion. There is normal arterial and normal venous vascularity. There is no sonographic evidence of extrauterine gestation or sonographic evidence to suspect ectopic . There is minimal fluid in the cul-de-sac. The bladder is sonographically normal US/Transvaginal w/Preg US IMPRESSION: No sonographic evidence of intra or extrauterine gestation. Complex 2.9 x 2.4 x 2.6 cm right adnexal mass with associated fluid. Short-term 4-6 week follow-up ultrasound recommended to assess resolution or stability Small 1 cm uterine fibroid, otherwise unremarkable uterus. Sonographically normal left ovary Electronically Signed: Shoaib Balderas MD at 8:25 EDT ,
== END | disposition home or self-care (01) ==
LOC: US 11:40
PROVIDERS: Referring Provider Nurse Practitioner Family; Visit Provider Nurse Practitioner Family
DX: N94.6 Dysmenorrhea, unspecified (principal)
CPT/HCPCS: 76817

== ENCOUNTER → 2023-07-27 | Outpatient (CLI) | payer MEDICAID, SELFPAY ==
[2023-07-27 08:09] LABS: Follicle Stimulating Hormone 4.8 mIU/mL; Luteinizing Hormone 5.4 mIU/mL
[2023-08-03 13:08] LABS: Insulin Level 12.3 uIU/mL (2.6-24.9); Testosterone, % Free 2.43 % (0.50-2.80); Testosterone, Total 33 ng/dL (4-50)
== END | disposition home or self-care (01) ==
LOC: LAB 06:34
PROVIDERS: Visit Provider Nurse Practitioner Family
DX: N94.6 Dysmenorrhea, unspecified (principal)
CPT/HCPCS: 36415; 83001; 83002; 83525; 84402; 84403

== ENCOUNTER → 2023-08-24 | Outpatient (CLI) | payer MEDICAID, SELFPAY ==
--- NOTE | 2023-08-24 07:56 | US_ITS ---
EXAM: US PELVIS TRANSVAGINAL CLINICAL INDICATION: OVARIAN CYST TECHNIQUE: Transvaginal pelvic ultrasound was performed with grayscale and color Doppler imaging. Transvaginal imaging was used for better evaluation of the endometrium and adnexa. COMPARISON: 07/13/2023. FINDINGS: UTERUS/CERVIX: Unremarkable. Anteverted. There is no uterine mass. The uterus measures 9.5 x 5.1 x 4.3 cm. The endometrial stripe measures 0.7 cm in thickness. RIGHT OVARY: Small follicles right ovary. Blood flow is present in the right ovary. The right ovary measures 4.3 x 4.2 x 3.0 cm. LEFT OVARY: Small follicles left ovary. Blood flow is present in the left ovary. The left ovary measures 4.0 x 3.3 x 3.0 cm. FREE FLUID: None. BLADDER: Empty bladder which cannot be evaluated with this probe. US/Transvaginal Non- IMPRESSION: No significant ovarian masses. Resolution of the previously noted complex follicle. Electronically Signed: Jonel Montoya MD at 8:38 EDT ,
== END | disposition home or self-care (01) ==
LOC: OPUS 07:54
PROVIDERS: Referring Provider Nurse Practitioner Family; Visit Provider Nurse Practitioner Family
DX: N83.201 Unspecified ovarian cyst, right side (principal)
CPT/HCPCS: 76830

== ENCOUNTER → 2023-10-12 | Outpatient (CLI) | payer MEDICAID, SELFPAY ==
--- NOTE | 2023-10-12 08:08 | BI_ITS ---
MAMMOGRAPHY - BILATERAL SCREENING 3-D TOMOSYNTHESIS REASON FOR EXAM: Female, 43 years old. SCREENING PERTINENT HISTORY: No significant family history. TECHNIQUE: 2-D mammograms and 3-D Tomosynthesis of the breast (s) were performed. CAD was performed. COMPARISON: 12/06/2020 FINDINGS: The breast composition is Extermely dense tissue. Scattered benign calcifications are seen. No dense spiculated masses or suspicious microcalcifications are identified. No architectural distortion is identified. There is no skin thickening or retraction. There has been no significant change since the prior study. BI/SCRN MAMM (CAD)W/SHAREE BILAT IMPRESSION: No mammographic signs of malignancy. Routine yearly mammograms recommended. ASSESSMENT CATEGORY: BIRADS Category 1: Negative. A letter regarding these results will be sent to the patient by the facility within 30 days. FOLLOW UP RECOMMENDATION: Yearly follow up mammogram recommended. (A) Approximately 10% of breast cancers are not detected by mammography. A normal mammogram should not delay biopsy of a clinically suspicious abnormality. Electronically Signed: Bassem Abbott MD at 13:42 EDT ,
== END | disposition home or self-care (01) ==
LOC: OPBI 08:06
PROVIDERS: Referring Provider Nurse Practitioner Family; Visit Provider Nurse Practitioner Family
DX: Z12.31 Encounter for screening mammogram for malignant neoplasm of breast (principal)
CPT/HCPCS: 77063; 77067

== ENCOUNTER → 2024-04-28 | Outpatient (CLI) | payer SELFPAY ==
--- NOTE | 2024-04-28 14:24 | US_ITS ---
PROCEDURE: BREAST COMPLETE UNILATERAL REASON FOR EXAM: Left breast lump and left breast pain. TECHNIQUE: Targeted left breast ultrasound. COMPARISON: Comparison is made with prior mammogram done earlier in the day. FINDINGS: LEFT: The entire left breast was examined with ultrasound. Dense fibroglandular tissue. There is a 9 mm x 6 mm x 4 mm cyst at the 9 o'clock position of the breast at 7 cm from the nipple. There is also evidence of a 4 mm x 4 mm x 3 mm cyst at the 10 o'clock position of the breast at 7 cm from the nipple. US/Breast Complete Unilateral IMPRESSION: 2 subcentimeter cysts are seen as described. Follow-up code: BI-RADS category 2. Reading Location: [facility]
--- NOTE | 2024-04-28 14:24 | BI_ITS ---
PROCEDURE: DIAG MAMM W/CAD, BILAT REASON FOR EXAM: F, Age 43 y/o, firmness of the left breast. TECHNIQUE: Bilateral screening digital breast tomosynthesis with 2D and 3D images. Computer aided detection. COMPARISON: Prior exam(s) dating back to October 12, 2023.. FINDINGS: The breasts are extremely dense which lowers the sensitivity of mammography. No suspicious masses, areas of developing architectural distortion, or suspicious calcifications. BI/DIAG MAMM W/CAD, BILAT IMPRESSION: BI-RADS 0: INCOMPLETE - NEED ADDITIONAL IMAGING EVALUATION. Follow-up code: Sonographic correlation of the left breast. The patient will be notified of the results by letter. Reading Location: [facility]
== END | disposition home or self-care (01) ==
PROVIDERS: PCP Nurse Practitioner Family; Referring Provider Nurse Practitioner Family; Visit Provider Nurse Practitioner Family
DX: N64.4 Mastodynia (principal)
CPT/HCPCS: 76641; 76642; 77062; 77066; G0279